=== PATIENT | male | born 1980 | race Caucasian/White ===

== ENCOUNTER 2020-01-21 15:53 | Observation (INO) ==
[2020-01-21] MEDS ORDERED: Naloxone 0.4 MG/ML INJ IVP PRN (20:59)
[2020-01-21] MEDS ORDERED: Ondansetron 4 MG/2 ML VIAL IVP PRN (20:59)
[2020-01-21] MEDS ORDERED: 0.9 % Sodium Chloride 1,000 ML IVC SCH (21:00)
[2020-01-21] MEDS: Ketorolac 30 MG/ML VIAL IVP PRN (21:25)
[2020-01-21] MEDS ORDERED: Nicotine 21 MG PATCH.TD24 TD SCH (23:30)
[2020-01-22] MEDS: *HR* Heparin 5,000 UNIT/ML VIAL SQ SCH ×2 (05:02→14:06)
[2020-01-22 05:46] LABS: Hematocrit 39.9 % (37.5-50.1); Mean Corpuscular HGB Conc 32.6 g/dL (31.6-35.5); Mean Corpuscular Hemoglobin 29.2 pg (28.0-33.3); Mean Corpuscular Volume 89.7 fL (83.0-100.0); Mean Platelet Volume 10.4 fL (9.4-12.4); Platelet Count 218 K/mcL (140-400); Red Blood Count 4.45 M/mcL (4.19-5.50); Red Cell Distribution Width 13.4 % (11.5-14.5); White Blood Count 10.4 K/mcL (4.3-11.1)
[2020-01-22 05:52] LABS: Prothrombin Time 11.6 Seconds (9.4-12.1)
[2020-01-22 05:55] LABS: Activated Partial Thrombo Time 34.7 Seconds (26.0-36.0)
[2020-01-22 05:57] LABS: Alanine Aminotransferase 11 Units/L (7-52); Albumin 3.6 g/dL (3.5-5.7); Albumin/Globulin Ratio 1.6 (1.1-2.2); Alkaline Phosphatase 48 Units/L (34-104); Aspartate Amino Transferase 19 Units/L (13-39); BUN/Creatinine Ratio 18 (6-26); Bilirubin,Total 0.6 mg/dL (0.3-1.0); Blood Urea Nitrogen 15 mg/dL (6-20); Calcium 8.5 mg/dL (8.6-10.3); Carbon Dioxide 25 mEq/L (23-29); Chloride 108 mEq/L (98-107); Globulin 2.3 g/dL (2.4-3.5); Glucose 90 mg/dL (70-105); Osmolality,Calculated 286 (280-300); Potassium 3.9 mEq/L (3.5-5.1); Sodium 138 mEq/L (136-145); Total Protein 5.9 g/dL (6.4-8.9); eGFR For African Americans > 60 (> 60); eGFR For Non-African Americans > 60 (> 60)
[2020-01-22] MEDS ORDERED: Nicotine 21 MG PATCH.TD24 TD SCH ×2 (09:00→23:30)
[2020-01-22] MEDS: Ketorolac 30 MG/ML VIAL IVP PRN (09:13)
[2020-01-22 15:53] LABS: Adenovirus Not Detected (Not Detect); Bordetella Pertussis Not Detected (Not Detect); Chlamydophila pneumoniae Not Detected (Not Detect); Coronavirus 229E Not Detected (Not Detect); Coronavirus HKU1 Not Detected (Not Detect); Coronavirus NL63 Not Detected (Not Detect); Coronavirus OC43 Not Detected (Not Detect); Human Metapneumovirus Not Detected (Not Detect); Human Rhinovirus/Enterovirus Not Detected (Not Detect); Influenza A Subtype 2009 H1 Not Detected (Not Detect); Influenza B Not Detected (Not Detect); Mycoplasma pneumoniae Not Detected (Not Detect); Parainfluenza Virus 1 Not Detected (Not Detect); Parainfluenza Virus 2 Not Detected (Not Detect); Parainfluenza Virus 3 Not Detected (Not Detect); Parainfluenza Virus 4 Not Detected (Not Detect); Respiratory Syncytial Virus Not Detected (Not Detect); SARS-CoV-2 Not Detected (Not Detect)
[2020-01-22] MEDS ORDERED: *HR* FentaNYL (PF) 100 MCG/2 ML VIAL ONE (16:32)
[2020-01-22] MEDS ORDERED: *HR* Midazolam HCl 2 MG/2 ML VIAL ONE (16:33)
[2020-01-22] MEDS ORDERED: Ondansetron 4 MG/2 ML VIAL IVP PRN ×2 (16:34→18:45)
[2020-01-22] MEDS ORDERED: *HR* HYDROmorphone PF 0.5 MG/0.5 ML SYRINGE IVP PRN (16:34)
[2020-01-22] MEDS ORDERED: *HR* Propofol 200 MG/20 ML VIAL IVP ONE (16:35)
[2020-01-22] MEDS ORDERED: Ondansetron 4 MG/2 ML VIAL ONE (16:39)
[2020-01-22] MEDS ORDERED: *HR* Rocuronium Bromide 50 MG/5 ML VIAL ONE ×2 (16:39→16:40)
[2020-01-22] MEDS ORDERED: Dexamethasone 4 MG/ML VIAL ONE (16:39)
[2020-01-22] MEDS ORDERED: *HR* Succinylcholine 200 MG/10 ML VIAL IVP ONE (16:39)
[2020-01-22] MEDS ORDERED: Lidocaine -MPF 2% 2 ML VIAL ONE (16:39)
[2020-01-22] MEDS ORDERED: Famotidine 20 MG/2 ML VIAL ONE (16:40)
[2020-01-22] MEDS ORDERED: Lidocaine -MPF 4% 5 ML AMPUL ONE (16:42)
[2020-01-22] MEDS ORDERED: Isovue-300 50ML VIAL ONE (16:46)
[2020-01-22] MEDS ORDERED: Acetaminophen IV 1,000 MG/100 ML INFUS..BTL ONE (17:16)
[2020-01-22] MEDS ORDERED: Naloxone 0.4 MG/ML INJ IVP PRN (18:45)
[2020-01-22] MEDS ORDERED: Ketorolac 30 MG/ML VIAL IVP PRN (18:45)
[2020-01-23 08:16] VITALS: BP 152/90
[2020-01-23] MEDS ORDERED: Azithromycin 250 MG TABLET PO ONE (09:30)
[2020-01-26 10:07] LABS: Calculi Mass 19 mg
== END 2020-01-23 11:09 | disposition home or self-care (01) ==
LOC: 3BNU → SUATTDRO 18:34
PROVIDERS: ADMIT Pharmacist; ATTEND Nurse Practitioner Adult Health